=== PATIENT | male | born 1975 | race Caucasian/White ===

== ENCOUNTER 2018-12-30 14:13 | Emergency (ER) | payer SELFPAY ==
[~2018-12-30] VITALS: Ht 185.4 cm; Wt 138.5 kg
[2018-12-30 14:28] VITALS: BP 134/81
[2018-12-30] MEDS ORDERED: LIDOCAINE-MPF 1%, 5ML ONE (14:44)
[2018-12-30] MEDS ORDERED: LIDOCAINE 1%, 10ML INFIL ONE (15:00)
== END 2018-12-30 15:42 | disposition home or self-care (01) ==
LOC: ED 15:28
DX: L03.012 Cellulitis of left finger (principal); E11.9 Type 2 diabetes mellitus without complications
CPT/HCPCS: 10060; 99283